=== PATIENT | female | born 1960 | race Caucasian/White ===

== ENCOUNTER 2017-03-12 11:11 | Emergency (ER) | payer OTHER ==
[2017-03-12 12:12] VITALS: BP 118/74
== END 2017-03-12 13:25 | disposition left against medical advice (07) ==
LOC: UCCORT 11:11
DX: R51 Headache (principal); R09.81 Nasal congestion; H83.8X9 Other specified diseases of inner ear, unspecified ear; R05 Cough; Z53.21 Procedure and treatment not carried out due to patient leaving prior to being seen by health care provider